=== PATIENT | male | born 1995 | race Caucasian/White ===

== ENCOUNTER 2023-07-04 10:13 | Inpatient (IN) | payer OTHER ==
[2023-07-04] VITALS (7 sets, daily range): BP systolic 110–144; PULSE 92–124; RESP 20–32; TEMP 98.1–99.7; O2SAT 95–97
[~2023-07-04] VITALS: Ht 182.9 cm; Wt 106.1 kg
[2023-07-04 10:40] LABS: BASOPHILS # (AUTO) 0.1 K/uL (0.0-0.2); BASOPHILS % (AUTO) 0.5 % (0.0-2.0); EOSINOPHILS # (AUTO) 0.1 K/uL (0.0-0.4); EOSINOPHILS % (AUTO) 0.5 % (0.0-4.0); HEMATOCRIT 41.8 % (36-54); HEMOGLOBIN 13.4 g/dL (14.0-18.0); LYMPHOCYTES # (AUTO) 1.2 K/uL (1.0-5.5); LYMPHOCYTES % (AUTO) 7.5 % (20.5-51.5); MEAN CORPUSCULAR HEMOGLOBIN 30 pg (27-31); MEAN CORPUSCULAR HGB CONC 32 % (32-36); MEAN CORPUSCULAR VOLUME 94 fL (79.0-98.0); MONOCYTES # (AUTO) 1.5 K/uL (0.0-1.0); MONOCYTES % (AUTO) 8.9 % (1.7-9.3); NEUTROPHILS # (AUTO) 13.8 K/uL (1.8-7.7); NEUTROPHILS % (AUTO) 82.6 % (40.0-70.0); PLATELET COUNT (AUTO) 347 K/uL (130-430); RED BLOOD CELL COUNT(AUTO) 4.46 MIL/uL (4.2-6.2); RED CELL DISTRIBUTION WIDTH 14.3 % (9.0-15.0); WHITE BLOOD COUNT (AUTO) 16.7 K/uL (4.8-10.8)
[2023-07-04] MEDS ORDERED: IBUPROFEN 800 MG TABLET PO ONE ×2 (10:45→20:30)
[2023-07-04 11:00] LABS: ANION GAP 10 (5-15); CALCIUM 8.5 mg/dL (8.4-11.0); CARBON DIOXIDE 27 mmol/L (23-29); CHLORIDE 102 mmol/L (98-107); CREATININE 1.05 mg/dL (0.55-1.30); GFR AFRICAN AMERICAN 107 mL/min (>90); GLUCOSE 114 mg/dL (74-106); POTASSIUM 3.5 mmol/L (3.5-5.1); SODIUM SERUM 139 mmol/L (136-145); UREA NITROGEN, BLOOD 8 mg/dL (8-21)
[2023-07-04 11:02] LABS: GFR NON AFRICAN-AMERICAN 89 mL/min (>90)
[2023-07-04 11:37] LABS: ALANINE AMINOTRANSFERASE 54 U/L (12-78); ALBUMIN 2.5 g/dL (3.4-4.8); ASPARTATE AMINOTRANSFERASE 21 U/L (10-37); TOTAL BILIRUBIN 0.6 mg/dL (0.0-1.0)
[2023-07-04] MEDS ORDERED: AZITHROMYCIN 500 MG in NS 250 ML IV SCH (12:30)
[2023-07-04] MEDS ORDERED: IPRATROPIUM/ALBUTEROL SULFATE 3 ML AMPUL.NEB (DUONEB) INH ONE (12:30)
[2023-07-04] MEDS ORDERED: AZITHROMYCIN 500 MG/VIAL (ZITHROMAX) IV ONE (13:11)
[2023-07-04] MEDS ORDERED: cefTRIAXone 2 GM VIAL ONE (13:12)
[2023-07-04] MEDS ORDERED: AZITHROMYCIN 500 MG in NS 250 ML IV ONE (13:28)
[2023-07-04 13:52] LABS: INFLUENZA TYPE A negative (NEGATIVE); INFLUENZA TYPE B NEGATIVE (NEGATIVE)
[2023-07-04] MEDS ORDERED: PIPERACILLIN/TAZO 3.375 GM in NS 50 ML IV SCH (14:00)
[2023-07-04] MEDS ORDERED: ONDANSETRON HCL 4 MG/2 ML VIAL IVP PRN (14:00)
[2023-07-04] MEDS ORDERED: MUPIROCIN 2% TOPICAL OINTMENT 22 GM NS PRN (14:00)
[2023-07-04] MEDS ORDERED: POTASSIUM CHLORIDE 20 MEQ TAB.PRT.SR PO PRN (14:00)
[2023-07-04] MEDS ORDERED: ACETAMINOPHEN 325 MG TABLET PO PRN (14:00)
[2023-07-04] MEDS ORDERED: MAGNESIUM SULFATE 50 ML IV PRN (14:00)
[2023-07-04] MEDS ORDERED: DOCUSATE SODIUM 100 MG CAPSULE PO PRN (14:00)
[2023-07-04] MEDS ORDERED: METOPROLOL TARTRATE 25 MG TABLET PO ONE (14:30)
[2023-07-04] MEDS: MORPHINE 2 MG/ML INJ. SYRINGE IVP PRN ×4 (14:36→23:18)
[2023-07-04] MEDS: NACL 0.9% 1,000 ML IV SCH ×2 (14:58→23:17)
[2023-07-04] MEDS: LORazepam 2 MG/ML VIAL IVP PRN (19:39)
[2023-07-04] MEDS ORDERED: IBUPROFEN 800 MG TABLET PO PRN (20:30)
[2023-07-04] MEDS ORDERED: FUROSEMIDE 40 MG/4 ML VIAL IVP ONE (20:45)
[2023-07-04] MEDS ORDERED: METOPROLOL TARTRATE 25 MG TABLET PO SCH (21:00)
[2023-07-04] MEDS: IPRATROPIUM/ALBUTEROL SULFATE 3 ML AMPUL.NEB (DUONEB) INH PRN (21:36)
[2023-07-04 22:01] LABS: BARBITURATE, URINE NEGATIVE (NEG <=200); BENZODIAZEPINE, URINE NEGATIVE (NEG <=150); CANNABINOID, URINE NEGATIVE (NEG <=50); COCAINE, URINE NEGATIVE (NEG <=150); METHAMPHETAMINES SCREEN,URINE NEGATIVE (NEG <=500); OPIATE, URINE POSITIVE (NEG <=100); PHENCYCLIDINE SCREEN,URINE NEGATIVE (NEG <=25); UR TRICYCLIC ANTIDEPRESSANTS NEGATIVE (NEG <=300); URINE AMPHETAMINE NEGATIVE (NEG <=500); URINE METHADONE NEGATIVE (NEG <=200); URINE OXYCODONE SCREEN NEGATIVE (NEG <=100); URINE PROPOXYPHENE SCREEN NEGATIVE (NEG <=300)
[2023-07-04] MEDS ORDERED: metroNIDAZOLE 500 mg/NS 200 ML IV ONE (22:45)
[2023-07-04] MEDS: metroNIDAZOLE 500 mg/NS 100 ML PREMIX IV SCH (23:19)
[2023-07-04] MEDS: methylPREDNISolone SOD SUCC/PF 62.5 MG/ML VIAL IVP SCH (23:25)
[2023-07-05] VITALS (29 sets, daily range): BP systolic 100–173; PULSE 91–121; RESP 18–42; TEMP 98–100.3; O2SAT 90–98
[2023-07-05] MEDS: IPRATROPIUM/ALBUTEROL SULFATE 3 ML AMPUL.NEB (DUONEB) INH PRN (00:55)
[2023-07-05] MEDS: ZOLPIDEM TARTRATE 5 MG TABLET PO PRN ×2 (00:58→22:54)
[2023-07-05] MEDS: NACL 0.9% 1,000 ML IV SCH ×2 (05:20→15:34)
[2023-07-05] MEDS: metroNIDAZOLE 500 mg/NS 100 ML PREMIX IV SCH (05:21)
[2023-07-05] MEDS: methylPREDNISolone SOD SUCC/PF 62.5 MG/ML VIAL IVP SCH (05:21)
[2023-07-05] MEDS ORDERED: hydrALAZINE HCL 20 MG/ML VIAL IVP PRN (05:30)
[2023-07-05 06:00] LABS: BASOPHILS % (AUTO) 0.1 % (0.0-2.0); HEMATOCRIT 39.4 % (36-54); HEMOGLOBIN 13.1 g/dL (14.0-18.0); LYMPHOCYTES # (AUTO) 0.5 K/uL (1.0-5.5); LYMPHOCYTES % (AUTO) 2.7 % (20.5-51.5); MEAN CORPUSCULAR HEMOGLOBIN 31 pg (27-31); MEAN CORPUSCULAR HGB CONC 33 % (32-36); MEAN CORPUSCULAR VOLUME 93 fL (79.0-98.0); MONOCYTES # (AUTO) 0.7 K/uL (0.0-1.0); MONOCYTES % (AUTO) 3.7 % (1.7-9.3); NEUTROPHILS # (AUTO) 17.6 K/uL (1.8-7.7); NEUTROPHILS % (AUTO) 93.5 % (40.0-70.0); PLATELET COUNT (AUTO) 382 K/uL (130-430); RED BLOOD CELL COUNT(AUTO) 4.26 MIL/uL (4.2-6.2); RED CELL DISTRIBUTION WIDTH 14.5 % (9.0-15.0); WHITE BLOOD COUNT (AUTO) 18.8 K/uL (4.8-10.8)
[2023-07-05] MEDS ORDERED: VANCOMYCIN HCL 750 MG/NS 250 ML IV ONE ×2 (06:00)
[2023-07-05 06:21] LABS: CALCIUM 8.3 mg/dL (8.4-11.0); CREATININE 0.99 mg/dL (0.55-1.30); POTASSIUM 3.8 mmol/L (3.5-5.1)
[2023-07-05] MEDS ORDERED: VANCOMYCIN HCL 1,500 MG in NS 250 ML IV ONE (06:30)
[2023-07-05] MEDS: MORPHINE 2 MG/ML INJ. SYRINGE IVP PRN ×4 (06:42→22:53)
[2023-07-05 08:02] LABS: INR 1.3 (0.80-1.20); PROTHROMBIN TIME 13.3 SECS (9.5-12.5)
[2023-07-05] MEDS: ACETAMINOPHEN 325 MG TABLET PO PRN ×2 (08:28→16:20)
[2023-07-05] MEDS: ENOXAPARIN SODIUM 30 MG/0.3 ML SYRINGE SUBCUT SCH (08:28)
[2023-07-05] MEDS: PANTOPRAZOLE SODIUM 40 MG TAB PO SCH (08:28)
[2023-07-05] MEDS: AZITHROMYCIN 500 MG in NS 250 ML IV SCH (12:19)
[2023-07-05] MEDS ORDERED: METHYLPREDNISOLONE SOD SUCC 40 MG/ML VIAL IVP SCH (14:00)
[2023-07-05] MEDS: MEROPENEM 1 GM in NS 100 ML IV SCH ×2 (14:42→21:30)
[2023-07-05] MEDS: IPRATROPIUM/ALBUTEROL SULFATE 3 ML AMPUL.NEB (DUONEB) INH SCH ×3 (14:49→23:18)
[2023-07-05] MEDS: LORazepam 2 MG/ML VIAL IVP PRN (15:29)
[2023-07-05] MEDS: VANCOMYCIN HCL 1,500 MG in NS 250 ML IV SCH ×2 (16:21→23:03)
[2023-07-06] VITALS (31 sets, daily range): BP systolic 118–162; PULSE 65–118; RESP 12–37; TEMP 98–99.6; O2SAT 90–96
[2023-07-06] MEDS: IPRATROPIUM/ALBUTEROL SULFATE 3 ML AMPUL.NEB (DUONEB) INH SCH ×6 (03:00→23:00)
[2023-07-06] MEDS: NACL 0.9% 1,000 ML IV SCH (03:32)
[2023-07-06] MEDS: MORPHINE 2 MG/ML INJ. SYRINGE IVP PRN ×3 (04:27→20:01)
[2023-07-06] MEDS: IPRATROPIUM/ALBUTEROL SULFATE 3 ML AMPUL.NEB (DUONEB) INH PRN (04:43)
[2023-07-06] MEDS: MEROPENEM 1 GM in NS 100 ML IV SCH ×3 (05:48→21:35)
[2023-07-06 06:03] LABS: BASOPHILS # (AUTO) 0.1 K/uL (0.0-0.2); BASOPHILS % (AUTO) 0.4 % (0.0-2.0); HEMOGLOBIN 10.9 g/dL (14.0-18.0); LYMPHOCYTES % (AUTO) 4.1 % (20.5-51.5); MEAN CORPUSCULAR HEMOGLOBIN 30 pg (27-31); MEAN CORPUSCULAR HGB CONC 33 % (32-36); MEAN CORPUSCULAR VOLUME 92 fL (79.0-98.0); MONOCYTES # (AUTO) 2.5 K/uL (0.0-1.0); MONOCYTES % (AUTO) 10.3 % (1.7-9.3); NEUTROPHILS # (AUTO) 20.7 K/uL (1.8-7.7); NEUTROPHILS % (AUTO) 85.2 % (40.0-70.0); PLATELET COUNT (AUTO) 415 K/uL (130-430); RED BLOOD CELL COUNT(AUTO) 3.59 MIL/uL (4.2-6.2); RED CELL DISTRIBUTION WIDTH 14.5 % (9.0-15.0); WHITE BLOOD COUNT (AUTO) 24.3 K/uL (4.8-10.8)
[2023-07-06 06:18] LABS: CALCIUM 7.2 mg/dL (8.4-11.0); CREATININE 0.99 mg/dL (0.55-1.30); THYROID STIMULATING HORMONE 0.43 uIu/mL (0.34-4.82); TOTAL BILIRUBIN 0.3 mg/dL (0.0-1.0); TOTAL PROTEIN, SERUM 6.4 g/dL (6.4-8.3)
[2023-07-06 06:20] LABS: ERYTHROCYTE SEDIMENTATION RATE 90 MM/HR (0-15)
[2023-07-06] MEDS: VANCOMYCIN HCL 1,500 MG in NS 250 ML IV SCH ×3 (08:16→22:07)
[2023-07-06] MEDS: ENOXAPARIN SODIUM 30 MG/0.3 ML SYRINGE SUBCUT SCH (09:00)
[2023-07-06] MEDS: PANTOPRAZOLE SODIUM 40 MG TAB PO SCH (09:20)
[2023-07-06] MEDS: ACETAMINOPHEN 325 MG TABLET PO PRN (09:20)
[2023-07-06] MEDS ORDERED: LIDOCAINE 1%, 20 ML MDV 20 ML ONE (11:24)
[2023-07-06] MEDS ORDERED: fentaNYL CITRATE/PF 100 MCG/2 ML AMP ONE (11:43)
[2023-07-06] MEDS ORDERED: MIDAZOLAM HCL 5 MG/5 ML VIAL ONE (11:44)
[2023-07-06] MEDS: AZITHROMYCIN 500 MG in NS 250 ML IV SCH (13:38)
[2023-07-06] MEDS: LORazepam 2 MG/ML VIAL IVP PRN ×2 (16:44→21:27)
[2023-07-06] MEDS: ZOLPIDEM TARTRATE 5 MG TABLET PO PRN (22:05)
[2023-07-07] VITALS (24 sets, daily range): BP systolic 127–171; PULSE 74–102; RESP 14–29; TEMP 98.6–100.2; O2SAT 90–100
[2023-07-07] MEDS: MORPHINE 2 MG/ML INJ. SYRINGE IVP PRN ×6 (00:14→21:10)
[2023-07-07] MEDS: IPRATROPIUM/ALBUTEROL SULFATE 3 ML AMPUL.NEB (DUONEB) INH SCH ×6 (02:51→23:00)
[2023-07-07] MEDS: NACL 0.9% 1,000 ML IV SCH ×4 (04:59→21:31)
[2023-07-07 05:07] LABS: BASOPHILS % (AUTO) 0.1 % (0.0-2.0); EOSINOPHILS % (AUTO) 0.1 % (0.0-4.0); HEMATOCRIT 37.3 % (36-54); HEMOGLOBIN 12.2 g/dL (14.0-18.0); LYMPHOCYTES # (AUTO) 2.2 K/uL (1.0-5.5); LYMPHOCYTES % (AUTO) 16.2 % (20.5-51.5); MEAN CORPUSCULAR HEMOGLOBIN 30 pg (27-31); MEAN CORPUSCULAR HGB CONC 33 % (32-36); MEAN CORPUSCULAR VOLUME 93 fL (79.0-98.0); MONOCYTES # (AUTO) 1.6 K/uL (0.0-1.0); MONOCYTES % (AUTO) 12.3 % (1.7-9.3); NEUTROPHILS # (AUTO) 9.5 K/uL (1.8-7.7); NEUTROPHILS % (AUTO) 71.3 % (40.0-70.0); PLATELET COUNT (AUTO) 465 K/uL (130-430); RED BLOOD CELL COUNT(AUTO) 4.03 MIL/uL (4.2-6.2); RED CELL DISTRIBUTION WIDTH 14.5 % (9.0-15.0); WHITE BLOOD COUNT (AUTO) 13.4 K/uL (4.8-10.8)
[2023-07-07 05:29] LABS: POTASSIUM 4.2 mmol/L (3.5-5.1)
[2023-07-07] MEDS: MEROPENEM 1 GM in NS 100 ML IV SCH ×3 (05:35→21:25)
[2023-07-07 05:43] LABS: CALCIUM 7.2 mg/dL (8.4-11.0); CREATININE 1.01 mg/dL (0.55-1.30)
[2023-07-07] MEDS: VANCOMYCIN HCL 1,500 MG in NS 250 ML IV SCH (06:32)
[2023-07-07] MEDS: ENOXAPARIN SODIUM 30 MG/0.3 ML SYRINGE SUBCUT SCH (08:54)
[2023-07-07] MEDS: PANTOPRAZOLE SODIUM 40 MG TAB PO SCH (08:54)
[2023-07-07] MEDS ORDERED: LORazepam 2 MG/ML VIAL ONE (13:01)
[2023-07-07] MEDS: LORazepam 2 MG/ML VIAL IVP PRN ×2 (13:02→18:54)
[2023-07-07] MEDS: AZITHROMYCIN 500 MG in NS 250 ML IV SCH (13:46)
[2023-07-07 15:24] LABS: APPEARANCE,SPUN,BODY FLUID CLEAR (CLEAR); BF APPEARANCE UNSPUN CLOUDY (CLEAR); BODY FLUID COLOR YELLOW (LT YELLOW); BODY FLUID SOURCE/ TYPE PLEURAL; BODY FLUID TOTAL VOLUME 80 mL; EOSINOPHIL, BODY FLUID 0 %; LYMPHOCYTES, BODY FLUID 4 %; MONOCYTES,BODY FLUID 3 %; NEUTROPHIL, BODY FLUID 93 %; RBC, BODY FLUID 3341 /uL; SOURCE/TYPE ,BODY FLUID THORACENTESIS; WBC, BODY FLUID 2109 /uL
[2023-07-07 18:06] LABS: QUANTIFERON TB GOLD Indeterminate (Negative)
[2023-07-07 18:45] LABS: BODY FLUID GLUCOSE 4 mg/dL; BODY FLUID TOTAL PROTEIN 4.6 g/dL
[2023-07-07] MEDS: ACETAMINOPHEN 325 MG TABLET PO PRN (18:55)
[2023-07-07 19:06] LABS: MYCOPLASMA PNEUMONIAE IgM 832 U/mL (0-769)
[2023-07-07] MEDS: ZOLPIDEM TARTRATE 5 MG TABLET PO PRN (21:24)
[2023-07-08] VITALS (8 sets, daily range): BP systolic 117–129; PULSE 82–106; RESP 15–20; TEMP 98.4–100.7; O2SAT 93–95
[2023-07-08] MEDS: IPRATROPIUM/ALBUTEROL SULFATE 3 ML AMPUL.NEB (DUONEB) INH SCH ×6 (03:00→23:00)
[2023-07-08] MEDS: MORPHINE 2 MG/ML INJ. SYRINGE IVP PRN ×5 (03:25→20:43)
[2023-07-08] MEDS: MEROPENEM 1 GM in NS 100 ML IV SCH ×3 (06:08→21:24)
[2023-07-08 06:55] LABS: CALCIUM 7.8 mg/dL (8.4-11.0); CREATININE 1.04 mg/dL (0.55-1.30); POTASSIUM 4.3 mmol/L (3.5-5.1)
[2023-07-08 07:10] LABS: BASOPHILS # (AUTO) 0.1 K/uL (0.0-0.2); BASOPHILS % (AUTO) 0.6 % (0.0-2.0); EOSINOPHILS # (AUTO) 0.1 K/uL (0.0-0.4); EOSINOPHILS % (AUTO) 0.7 % (0.0-4.0); HEMATOCRIT 42.7 % (36-54); HEMOGLOBIN 14.3 g/dL (14.0-18.0); LYMPHOCYTES # (AUTO) 2.2 K/uL (1.0-5.5); LYMPHOCYTES % (AUTO) 16.3 % (20.5-51.5); MEAN CORPUSCULAR HEMOGLOBIN 31 pg (27-31); MEAN CORPUSCULAR HGB CONC 33 % (32-36); MEAN CORPUSCULAR VOLUME 92 fL (79.0-98.0); MONOCYTES # (AUTO) 1.6 K/uL (0.0-1.0); MONOCYTES % (AUTO) 11.9 % (1.7-9.3); NEUTROPHILS # (AUTO) 9.4 K/uL (1.8-7.7); PLATELET COUNT (AUTO) 541 K/uL (130-430); RED BLOOD CELL COUNT(AUTO) 4.63 MIL/uL (4.2-6.2); RED CELL DISTRIBUTION WIDTH 14.9 % (9.0-15.0); WHITE BLOOD COUNT (AUTO) 13.3 K/uL (4.8-10.8)
[2023-07-08] MEDS: PANTOPRAZOLE SODIUM 40 MG TAB PO SCH (08:52)
[2023-07-08] MEDS: ENOXAPARIN SODIUM 30 MG/0.3 ML SYRINGE SUBCUT SCH (08:52)
[2023-07-08 10:38] LABS: NEUTROPHILS % (AUTO) 70.5 % (40.0-70.0)
[2023-07-08] MEDS: AZITHROMYCIN 500 MG in NS 250 ML IV SCH (11:25)
[2023-07-08] MEDS: LORazepam 2 MG/ML VIAL IVP PRN ×2 (14:04→18:23)
[2023-07-08] MEDS: IPRATROPIUM/ALBUTEROL SULFATE 3 ML AMPUL.NEB (DUONEB) INH PRN (15:27)
[2023-07-08] MEDS: NACL 0.9% 1,000 ML IV SCH (18:23)
[2023-07-08] MEDS: ACETAMINOPHEN 325 MG TABLET PO PRN (20:24)
[2023-07-08] MEDS: ZOLPIDEM TARTRATE 5 MG TABLET PO PRN (20:44)
[2023-07-09] VITALS (8 sets, daily range): BP systolic 118–128; PULSE 72–112; RESP 18–20; TEMP 98.8–99.6; O2SAT 93–96
[2023-07-09] MEDS: MORPHINE 2 MG/ML INJ. SYRINGE IVP PRN ×5 (01:35→21:21)
[2023-07-09] MEDS: NACL 0.9% 1,000 ML IV SCH ×2 (01:39→16:29)
[2023-07-09] MEDS: IPRATROPIUM/ALBUTEROL SULFATE 3 ML AMPUL.NEB (DUONEB) INH SCH ×6 (03:00→23:00)
[2023-07-09 05:00] LABS: ERYTHROCYTE SEDIMENTATION RATE 100 MM/HR (0-15)
[2023-07-09 05:17] LABS: CALCIUM 7.7 mg/dL (8.4-11.0); CREATININE 1.02 mg/dL (0.55-1.30); POTASSIUM 4.4 mmol/L (3.5-5.1)
[2023-07-09 06:05] LABS: BASOPHILS # (AUTO) 0.1 K/uL (0.0-0.2); BASOPHILS % (AUTO) 0.4 % (0.0-2.0); EOSINOPHILS # (AUTO) 0.2 K/uL (0.0-0.4); EOSINOPHILS % (AUTO) 1.1 % (0.0-4.0); HEMOGLOBIN 13.9 g/dL (14.0-18.0); LYMPHOCYTES # (AUTO) 2.2 K/uL (1.0-5.5); LYMPHOCYTES % (AUTO) 12.9 % (20.5-51.5); MEAN CORPUSCULAR HEMOGLOBIN 31 pg (27-31); MEAN CORPUSCULAR HGB CONC 33 % (32-36); MEAN CORPUSCULAR VOLUME 92 fL (79.0-98.0); MONOCYTES # (AUTO) 1.9 K/uL (0.0-1.0); MONOCYTES % (AUTO) 11.4 % (1.7-9.3); NEUTROPHILS # (AUTO) 12.4 K/uL (1.8-7.7); NEUTROPHILS % (AUTO) 74.2 % (40.0-70.0); PLATELET COUNT (AUTO) 528 K/uL (130-430); RED BLOOD CELL COUNT(AUTO) 4.55 MIL/uL (4.2-6.2); RED CELL DISTRIBUTION WIDTH 14.6 % (9.0-15.0); WHITE BLOOD COUNT (AUTO) 16.7 K/uL (4.8-10.8)
[2023-07-09] MEDS: MEROPENEM 1 GM in NS 100 ML IV SCH ×3 (06:26→21:18)
[2023-07-09] MEDS: PANTOPRAZOLE SODIUM 40 MG TAB PO SCH (08:50)
[2023-07-09] MEDS: ENOXAPARIN SODIUM 30 MG/0.3 ML SYRINGE SUBCUT SCH (08:50)
[2023-07-09] MEDS: AZITHROMYCIN 500 MG in NS 250 ML IV SCH (12:16)
[2023-07-09] MEDS: ACETAMINOPHEN 325 MG TABLET PO PRN ×2 (12:20→18:33)
[2023-07-09] MEDS ORDERED: ALTEPLASE 2 MG VIAL MC ONE (18:00)
[2023-07-09] MEDS: LORazepam 2 MG/ML VIAL IVP PRN (20:08)
[2023-07-09] MEDS: ZOLPIDEM TARTRATE 5 MG TABLET PO PRN (21:18)
[2023-07-10] VITALS (9 sets, daily range): BP systolic 122–127; PULSE 74–102; RESP 16–18; TEMP 99–100.9; O2SAT 94–96
[2023-07-10] MEDS: MORPHINE 2 MG/ML INJ. SYRINGE IVP PRN ×4 (02:52→19:52)
[2023-07-10] MEDS: IPRATROPIUM/ALBUTEROL SULFATE 3 ML AMPUL.NEB (DUONEB) INH SCH ×6 (03:00→23:00)
[2023-07-10] MEDS: NACL 0.9% 1,000 ML IV SCH ×2 (05:07→19:51)
[2023-07-10] MEDS: MEROPENEM 1 GM in NS 100 ML IV SCH ×3 (05:36→21:29)
[2023-07-10 07:36] LABS: HEMATOCRIT 41.6 % (36-54); HEMOGLOBIN 13.8 g/dL (14.0-18.0); MEAN CORPUSCULAR HEMOGLOBIN 31 pg (27-31); MEAN CORPUSCULAR HGB CONC 33 % (32-36); MEAN CORPUSCULAR VOLUME 92 fL (79.0-98.0); PLATELET COUNT (AUTO) 527 K/uL (130-430); RED BLOOD CELL COUNT(AUTO) 4.53 MIL/uL (4.2-6.2); RED CELL DISTRIBUTION WIDTH 14.9 % (9.0-15.0); WHITE BLOOD COUNT (AUTO) 18.4 K/uL (4.8-10.8)
[2023-07-10 07:48] LABS: ALBUMIN 2.3 g/dL (3.4-4.8); CALCIUM 7.6 mg/dL (8.4-11.0); CREATININE 0.93 mg/dL (0.55-1.30); POTASSIUM 4.5 mmol/L (3.5-5.1); TOTAL BILIRUBIN 0.6 mg/dL (0.0-1.0); TOTAL PROTEIN, SERUM 6.9 g/dL (6.4-8.3)
[2023-07-10] MEDS: ACETAMINOPHEN 325 MG TABLET PO PRN ×2 (10:24→18:11)
[2023-07-10] MEDS: PANTOPRAZOLE SODIUM 40 MG TAB PO SCH (10:24)
[2023-07-10] MEDS: ENOXAPARIN SODIUM 30 MG/0.3 ML SYRINGE SUBCUT SCH (10:25)
[2023-07-10] MEDS: LORazepam 2 MG/ML VIAL IVP PRN ×2 (12:29→21:28)
[2023-07-10] MEDS: AZITHROMYCIN 500 MG in NS 250 ML IV SCH (14:38)
[2023-07-10] MEDS: ZOLPIDEM TARTRATE 5 MG TABLET PO PRN (21:28)
[2023-07-11] VITALS (12 sets, daily range): BP systolic 102–131; PULSE 96–105; RESP 18–20; TEMP 97.7–99.3; O2SAT 94–100
[2023-07-11] MEDS: MORPHINE 2 MG/ML INJ. SYRINGE IVP PRN ×5 (01:34→20:14)
[2023-07-11] MEDS: IPRATROPIUM/ALBUTEROL SULFATE 3 ML AMPUL.NEB (DUONEB) INH SCH ×5 (03:00→23:00)
[2023-07-11] MEDS: MEROPENEM 1 GM in NS 100 ML IV SCH ×3 (05:13→22:33)
[2023-07-11 05:45] LABS: BASOPHILS # (AUTO) 0.1 K/uL (0.0-0.2); BASOPHILS % (AUTO) 0.4 % (0.0-2.0); EOSINOPHILS # (AUTO) 0.1 K/uL (0.0-0.4); EOSINOPHILS % (AUTO) 0.6 % (0.0-4.0); HEMATOCRIT 40.3 % (36-54); HEMOGLOBIN 13.3 g/dL (14.0-18.0); LYMPHOCYTES % (AUTO) 10.6 % (20.5-51.5); MEAN CORPUSCULAR HEMOGLOBIN 30 pg (27-31); MEAN CORPUSCULAR HGB CONC 33 % (32-36); MEAN CORPUSCULAR VOLUME 92 fL (79.0-98.0); MONOCYTES # (AUTO) 1.6 K/uL (0.0-1.0); MONOCYTES % (AUTO) 8.3 % (1.7-9.3); NEUTROPHILS % (AUTO) 80.1 % (40.0-70.0); PLATELET COUNT (AUTO) 488 K/uL (130-430); RED BLOOD CELL COUNT(AUTO) 4.41 MIL/uL (4.2-6.2); RED CELL DISTRIBUTION WIDTH 14.4 % (9.0-15.0); WHITE BLOOD COUNT (AUTO) 18.8 K/uL (4.8-10.8)
[2023-07-11 06:29] LABS: ALBUMIN 2.2 g/dL (3.4-4.8); CALCIUM 7.5 mg/dL (8.4-11.0); CREATININE 0.77 mg/dL (0.55-1.30); PHOSPHORUS 3.1 mg/dL (2.7-4.5); POTASSIUM 4.3 mmol/L (3.5-5.1); TOTAL BILIRUBIN 0.6 mg/dL (0.0-1.0); TOTAL PROTEIN, SERUM 6.6 g/dL (6.4-8.3)
[2023-07-11] MEDS: PANTOPRAZOLE SODIUM 40 MG TAB PO SCH (08:15)
[2023-07-11] MEDS: ENOXAPARIN SODIUM 30 MG/0.3 ML SYRINGE SUBCUT SCH (08:16)
[2023-07-11] MEDS ORDERED: ALTEPLASE 2 MG VIAL MC ONE ×2 (09:00→17:00)
[2023-07-11] MEDS: LORazepam 2 MG/ML VIAL IVP PRN ×2 (09:32→17:53)
[2023-07-11] MEDS: NACL 0.9% 1,000 ML IV SCH ×2 (09:47→21:34)
[2023-07-11] MEDS: AZITHROMYCIN 500 MG in NS 250 ML IV SCH (13:21)
[2023-07-11 19:06] LABS: QUANTIFERON TB GOLD Negative (Negative)
[2023-07-11] MEDS ORDERED: LORazepam 2 MG/ML VIAL IVP ONE (21:15)
[2023-07-11] MEDS: IPRATROPIUM/ALBUTEROL SULFATE 3 ML AMPUL.NEB (DUONEB) INH PRN (22:26)
[2023-07-11] MEDS: ZOLPIDEM TARTRATE 5 MG TABLET PO PRN (23:04)
[2023-07-12] VITALS (29 sets, daily range): BP systolic 107–131; PULSE 79–116; RESP 10–28; TEMP 97.2–98.5; O2SAT 92–100
[2023-07-12] MEDS: LORazepam 2 MG/ML VIAL IVP PRN ×4 (02:50→21:16)
[2023-07-12] MEDS: MORPHINE 2 MG/ML INJ. SYRINGE IVP PRN ×4 (02:50→18:21)
[2023-07-12] MEDS: IPRATROPIUM/ALBUTEROL SULFATE 3 ML AMPUL.NEB (DUONEB) INH SCH ×6 (03:00→23:00)
[2023-07-12 05:23] LABS: BASOPHILS # (AUTO) 0.1 K/uL (0.0-0.2); BASOPHILS % (AUTO) 0.7 % (0.0-2.0); EOSINOPHILS # (AUTO) 0.1 K/uL (0.0-0.4); EOSINOPHILS % (AUTO) 0.4 % (0.0-4.0); HEMATOCRIT 39.5 % (36-54); LYMPHOCYTES # (AUTO) 2.1 K/uL (1.0-5.5); LYMPHOCYTES % (AUTO) 13.7 % (20.5-51.5); MEAN CORPUSCULAR HEMOGLOBIN 30 pg (27-31); MEAN CORPUSCULAR HGB CONC 33 % (32-36); MEAN CORPUSCULAR VOLUME 91 fL (79.0-98.0); MONOCYTES # (AUTO) 1.6 K/uL (0.0-1.0); MONOCYTES % (AUTO) 10.2 % (1.7-9.3); NEUTROPHILS # (AUTO) 11.4 K/uL (1.8-7.7); PLATELET COUNT (AUTO) 491 K/uL (130-430); RED BLOOD CELL COUNT(AUTO) 4.33 MIL/uL (4.2-6.2); RED CELL DISTRIBUTION WIDTH 14.6 % (9.0-15.0); WHITE BLOOD COUNT (AUTO) 15.2 K/uL (4.8-10.8)
[2023-07-12] MEDS: MEROPENEM 1 GM in NS 100 ML IV SCH ×3 (06:03→21:13)
[2023-07-12 06:23] LABS: ALBUMIN 2.2 g/dL (3.4-4.8); CALCIUM 7.7 mg/dL (8.4-11.0); POTASSIUM 4.5 mmol/L (3.5-5.1); TOTAL BILIRUBIN 0.8 mg/dL (0.0-1.0); TOTAL PROTEIN, SERUM 6.7 g/dL (6.4-8.3)
[2023-07-12] MEDS: ENOXAPARIN SODIUM 30 MG/0.3 ML SYRINGE SUBCUT SCH (09:46)
[2023-07-12] MEDS: PANTOPRAZOLE SODIUM 40 MG TAB PO SCH (09:46)
[2023-07-12] MEDS: NACL 0.9% 1,000 ML IV SCH ×2 (11:22→21:13)
[2023-07-12] MEDS: AZITHROMYCIN 500 MG in NS 250 ML IV SCH ×2 (13:49→14:00)
[2023-07-12] MEDS ORDERED: ALTEPLASE 2 MG VIAL MC ONE (17:00)
[2023-07-12] MEDS: ZOLPIDEM TARTRATE 5 MG TABLET PO PRN (21:28)
[2023-07-13] VITALS (28 sets, daily range): BP systolic 96–144; PULSE 65–114; RESP 8–24; TEMP 98–99.1; O2SAT 91–100
[2023-07-13] MEDS: MORPHINE 2 MG/ML INJ. SYRINGE IVP PRN ×7 (01:18→20:10)
[2023-07-13] MEDS: IPRATROPIUM/ALBUTEROL SULFATE 3 ML AMPUL.NEB (DUONEB) INH SCH ×4 (03:00→23:00)
[2023-07-13] MEDS: LORazepam 2 MG/ML VIAL IVP PRN ×4 (04:57→17:05)
[2023-07-13 05:14] LABS: BASOPHILS # (AUTO) 0.1 K/uL (0.0-0.2); BASOPHILS % (AUTO) 0.6 % (0.0-2.0); EOSINOPHILS # (AUTO) 0.1 K/uL (0.0-0.4); EOSINOPHILS % (AUTO) 1.6 % (0.0-4.0); HEMATOCRIT 38.1 % (36-54); HEMOGLOBIN 12.6 g/dL (14.0-18.0); LYMPHOCYTES # (AUTO) 1.7 K/uL (1.0-5.5); MEAN CORPUSCULAR HEMOGLOBIN 30 pg (27-31); MEAN CORPUSCULAR HGB CONC 33 % (32-36); MEAN CORPUSCULAR VOLUME 91 fL (79.0-98.0); MONOCYTES % (AUTO) 10.6 % (1.7-9.3); NEUTROPHILS # (AUTO) 6.3 K/uL (1.8-7.7); NEUTROPHILS % (AUTO) 68.2 % (40.0-70.0); PLATELET COUNT (AUTO) 496 K/uL (130-430); RED BLOOD CELL COUNT(AUTO) 4.18 MIL/uL (4.2-6.2); RED CELL DISTRIBUTION WIDTH 14.3 % (9.0-15.0); WHITE BLOOD COUNT (AUTO) 9.2 K/uL (4.8-10.8)
[2023-07-13 05:18] LABS: CALCIUM 8.7 mg/dL (8.4-11.0); CREATININE 0.76 mg/dL (0.55-1.30)
[2023-07-13] MEDS: MEROPENEM 1 GM in NS 100 ML IV SCH ×3 (05:37→20:09)
[2023-07-13] MEDS: ENOXAPARIN SODIUM 30 MG/0.3 ML SYRINGE SUBCUT SCH (08:41)
[2023-07-13] MEDS: PANTOPRAZOLE SODIUM 40 MG TAB PO SCH (08:41)
[2023-07-13] MEDS ORDERED: NS MC ONE (09:15)
[2023-07-13] MEDS ORDERED: [UNRECOGNIZED DRUG - OTHER] MC ONE (09:15)
[2023-07-13] MEDS ORDERED: ALTEPLASE 2 MG VIAL MC ONE (09:30)
[2023-07-13] MEDS ORDERED: DORNASE ALFA 2.5 MG/2.5 ML MC ONE (10:00)
[2023-07-13] MEDS ORDERED: MORPHINE 2 MG/ML INJ. SYRINGE IVP ONE (10:15)
[2023-07-13] MEDS ORDERED: NALOXONE HCL 0.4 MG/ML AMP (NARCAN) IVP ONE (10:15)
[2023-07-13] MEDS: NACL 0.9% 1,000 ML IV SCH ×2 (10:29→20:11)
[2023-07-13] MEDS ORDERED: MORPHINE 2 MG/ML INJ. SYRINGE IVP PRN (14:45)
[2023-07-13] MEDS ORDERED: LORazepam 2 MG/ML VIAL IVP PRN (15:15)
[2023-07-13] MEDS: ZOLPIDEM TARTRATE 5 MG TABLET PO PRN (20:09)
[2023-07-14] VITALS (29 sets, daily range): BP systolic 92–149; PULSE 64–105; RESP 13–30; TEMP 98.3–99.4; O2SAT 92–97
[2023-07-14] MEDS: MORPHINE 2 MG/ML INJ. SYRINGE IVP PRN ×5 (00:42→22:08)
[2023-07-14] MEDS: LORazepam 2 MG/ML VIAL IVP PRN (02:37)
[2023-07-14] MEDS: IPRATROPIUM/ALBUTEROL SULFATE 3 ML AMPUL.NEB (DUONEB) INH SCH ×7 (03:00→22:56)
[2023-07-14] MEDS: MEROPENEM 1 GM in NS 100 ML IV SCH ×3 (05:21→22:01)
[2023-07-14 06:38] LABS: BASOPHILS # (AUTO) 0.1 K/uL (0.0-0.2); BASOPHILS % (AUTO) 1.6 % (0.0-2.0); EOSINOPHILS # (AUTO) 0.2 K/uL (0.0-0.4); HEMATOCRIT 38.3 % (36-54); HEMOGLOBIN 12.8 g/dL (14.0-18.0); LYMPHOCYTES # (AUTO) 1.5 K/uL (1.0-5.5); LYMPHOCYTES % (AUTO) 18.8 % (20.5-51.5); MEAN CORPUSCULAR HEMOGLOBIN 31 pg (27-31); MEAN CORPUSCULAR HGB CONC 33 % (32-36); MEAN CORPUSCULAR VOLUME 92 fL (79.0-98.0); MONOCYTES # (AUTO) 0.7 K/uL (0.0-1.0); MONOCYTES % (AUTO) 8.6 % (1.7-9.3); NEUTROPHILS # (AUTO) 5.7 K/uL (1.8-7.7); PLATELET COUNT (AUTO) 539 K/uL (130-430); RED BLOOD CELL COUNT(AUTO) 4.18 MIL/uL (4.2-6.2); RED CELL DISTRIBUTION WIDTH 14.5 % (9.0-15.0); WHITE BLOOD COUNT (AUTO) 8.2 K/uL (4.8-10.8)
[2023-07-14 06:56] LABS: CALCIUM 8.8 mg/dL (8.4-11.0); CREATININE 0.86 mg/dL (0.55-1.30); POTASSIUM 4.6 mmol/L (3.5-5.1)
[2023-07-14] MEDS: ENOXAPARIN SODIUM 30 MG/0.3 ML SYRINGE SUBCUT SCH (09:53)
[2023-07-14] MEDS: PANTOPRAZOLE SODIUM 40 MG TAB PO SCH (09:53)
[2023-07-14] MEDS ORDERED: COMMUNICATION ORDER XX ONE (10:45)
[2023-07-14] MEDS ORDERED: ALTEPLASE 2 MG VIAL MC ONE (11:00)
[2023-07-14] MEDS ORDERED: NS MC ONE (11:00)
[2023-07-14] MEDS ORDERED: DORNASE ALFA 2.5 MG/2.5 ML MC ONE (11:00)
[2023-07-14] MEDS ORDERED: [UNRECOGNIZED DRUG - OTHER] MC ONE (11:00)
[2023-07-14] MEDS: AZITHROMYCIN 500 MG in NS 250 ML IV SCH (13:34)
[2023-07-14] MEDS: NACL 0.9% 1,000 ML IV SCH (16:30)
[2023-07-15] VITALS (23 sets, daily range): BP systolic 92–131; PULSE 59–95; RESP 12–30; TEMP 97.5–98.9; O2SAT 94–97
[2023-07-15] MEDS: MORPHINE 2 MG/ML INJ. SYRINGE IVP PRN ×4 (03:01→18:30)
[2023-07-15] MEDS: NACL 0.9% 1,000 ML IV SCH ×2 (03:02→13:49)
[2023-07-15 05:17] LABS: BASOPHILS # (AUTO) 0.1 K/uL (0.0-0.2); BASOPHILS % (AUTO) 0.8 % (0.0-2.0); EOSINOPHILS # (AUTO) 0.1 K/uL (0.0-0.4); EOSINOPHILS % (AUTO) 1.8 % (0.0-4.0); HEMATOCRIT 38.8 % (36-54); HEMOGLOBIN 12.9 g/dL (14.0-18.0); LYMPHOCYTES # (AUTO) 1.6 K/uL (1.0-5.5); LYMPHOCYTES % (AUTO) 21.3 % (20.5-51.5); MEAN CORPUSCULAR HEMOGLOBIN 30 pg (27-31); MEAN CORPUSCULAR HGB CONC 33 % (32-36); MEAN CORPUSCULAR VOLUME 90 fL (79.0-98.0); MONOCYTES # (AUTO) 0.7 K/uL (0.0-1.0); MONOCYTES % (AUTO) 9.5 % (1.7-9.3); NEUTROPHILS # (AUTO) 4.9 K/uL (1.8-7.7); NEUTROPHILS % (AUTO) 66.6 % (40.0-70.0); PLATELET COUNT (AUTO) 569 K/uL (130-430); RED BLOOD CELL COUNT(AUTO) 4.29 MIL/uL (4.2-6.2); RED CELL DISTRIBUTION WIDTH 14.7 % (9.0-15.0); WHITE BLOOD COUNT (AUTO) 7.4 K/uL (4.8-10.8)
[2023-07-15] MEDS: MEROPENEM 1 GM in NS 100 ML IV SCH ×3 (05:28→21:55)
[2023-07-15 05:39] LABS: POTASSIUM 4.3 mmol/L (3.5-5.1)
[2023-07-15 05:40] LABS: CREATININE 0.83 mg/dL (0.55-1.30)
[2023-07-15] MEDS: PANTOPRAZOLE SODIUM 40 MG TAB PO SCH (08:11)
[2023-07-15] MEDS: ENOXAPARIN SODIUM 30 MG/0.3 ML SYRINGE SUBCUT SCH (08:11)
[2023-07-15] MEDS: IPRATROPIUM/ALBUTEROL SULFATE 3 ML AMPUL.NEB (DUONEB) INH SCH ×5 (09:20→23:00)
[2023-07-15] MEDS: ZOLPIDEM TARTRATE 5 MG TABLET PO PRN (20:22)
[2023-07-15] MEDS: LORazepam 2 MG/ML VIAL IVP PRN (22:12)
[2023-07-16 00:30] VITALS: BP_SYST 121; PULSE 89; RESP 18; TEMP 97.8; O2SAT 97
[2023-07-16] MEDS: IPRATROPIUM/ALBUTEROL SULFATE 3 ML AMPUL.NEB (DUONEB) INH SCH ×3 (03:00→11:00)
[2023-07-16 05:29] LABS: BASOPHILS # (AUTO) 0.1 K/uL (0.0-0.2); BASOPHILS % (AUTO) 2.2 % (0.0-2.0); EOSINOPHILS # (AUTO) 0.2 K/uL (0.0-0.4); EOSINOPHILS % (AUTO) 2.7 % (0.0-4.0); HEMATOCRIT 40.9 % (36-54); HEMOGLOBIN 13.2 g/dL (14.0-18.0); LYMPHOCYTES # (AUTO) 1.6 K/uL (1.0-5.5); MEAN CORPUSCULAR HEMOGLOBIN 30 pg (27-31); MEAN CORPUSCULAR HGB CONC 32 % (32-36); MEAN CORPUSCULAR VOLUME 92 fL (79.0-98.0); MONOCYTES # (AUTO) 0.5 K/uL (0.0-1.0); MONOCYTES % (AUTO) 7.5 % (1.7-9.3); NEUTROPHILS # (AUTO) 3.8 K/uL (1.8-7.7); NEUTROPHILS % (AUTO) 61.6 % (40.0-70.0); PLATELET COUNT (AUTO) 560 K/uL (130-430); RED BLOOD CELL COUNT(AUTO) 4.47 MIL/uL (4.2-6.2); WHITE BLOOD COUNT (AUTO) 6.2 K/uL (4.8-10.8)
[2023-07-16 05:36] LABS: ERYTHROCYTE SEDIMENTATION RATE 65 MM/HR (0-15)
[2023-07-16] MEDS: NACL 0.9% 1,000 ML IV SCH (06:00)
[2023-07-16] MEDS: MEROPENEM 1 GM in NS 100 ML IV SCH (06:00)
[2023-07-16 06:24] LABS: CALCIUM 8.8 mg/dL (8.4-11.0); CREATININE 0.91 mg/dL (0.55-1.30); POTASSIUM 4.2 mmol/L (3.5-5.1)
[2023-07-16 07:55] VITALS: O2SAT 97
[2023-07-16 08:00] VITALS: BP_SYST 115; PULSE 85; RESP 18; TEMP 98.2; O2SAT 98
[2023-07-16] MEDS: PANTOPRAZOLE SODIUM 40 MG TAB PO SCH (09:41)
[2023-07-16] MEDS: ENOXAPARIN SODIUM 30 MG/0.3 ML SYRINGE SUBCUT SCH (09:42)
[2023-07-16 12:30] VITALS: BP_SYST 110; PULSE 89; RESP 17; TEMP 98.2; O2SAT 98
[2023-07-16] MEDS ORDERED: LACT1CAP58 PO (12:56)
[2023-07-16] MEDS ORDERED: LEVO750T64 PO (12:56)
[2023-07-16 13:46] VITALS: BP_SYST 110; PULSE 89; RESP 17; TEMP 98.2; O2SAT 98
== END 2023-07-16 15:05 | disposition home or self-care (01) | DRG 871 ==
LOC: SED 10:13 → STU 14:06 → SIC 22:15 → STU 07-07 12:47 → SIC 07-11 22:00 → STU 07-15 17:39
PROVIDERS: ADMIT General Practice; ATTEND General Practice
PROC: 0W9930Z Drainage of Right Pleural Cavity with Drainage Device, Percutaneous Approach (ICD-10-PCS; 2023-07-06)
PROC: 3E0L3GC Introduction of Other Therapeutic Substance into Pleural Cavity, Percutaneous Approach (ICD-10-PCS; principal; 2023-07-11)
PROC: 3E0L3GC Introduction of Other Therapeutic Substance into Pleural Cavity, Percutaneous Approach (ICD-10-PCS; 2023-07-13)
PROC: 3E0L3GC Introduction of Other Therapeutic Substance into Pleural Cavity, Percutaneous Approach (ICD-10-PCS; 2023-07-14)
DX: A41.9 Sepsis, unspecified organism (principal); J15.4 Pneumonia due to other streptococci; J96.01 Acute respiratory failure with hypoxia; J86.9 Pyothorax without fistula; J15.7 Pneumonia due to Mycoplasma pneumoniae; J91.8 Pleural effusion in other conditions classified elsewhere; Z20.822 Contact with and (suspected) exposure to COVID-19; E66.9 Obesity, unspecified; F17.290 Nicotine dependence, other tobacco product, uncomplicated; Z88.1 Allergy status to other antibiotic agents; Z88.2 Allergy status to sulfonamides; Z68.31 Body mass index [BMI] 31.0-31.9, adult
CPT/HCPCS: 36415; 71045; 71250-TC; 76376; 76604; 77012; 80048; 80053; 80061; 80202; 80307; 82947; 82962; 83037; 83605; 83735; 83880; 84100; 84157; 84443; 85025; 85610-TC; 85651-TC; 85730-TC; 86480; 86635; 86738; 87040; 87070-TC; 87081; 87101; 87116; 87205-TC; 87449; 88108; 88305; 89051-TC; 89060-TC; 93005; 93306; 94010; 94640; 94760; 97110-GP; 97116-GP; 97530-GP; 99285; C1729; C1769; G0378; J0456; J0696; J1650; J1940; J1956; J2001; J2060; J2185; J2250; J2270; J2930; J2997; J3010; J3370; J3490; J7050